=== PATIENT | male | born 1985 | race Caucasian/White ===

== ENCOUNTER 2022-06-02 21:35 | Emergency (ER) | payer OTHER ==
[~2022-06-02] VITALS: Ht 177.8 cm; Wt 77.0 kg
[2022-06-02 21:46] VITALS: BP 134/89
== END 2022-06-02 23:10 ==
LOC: ER 21:35
DX: Z02.89 Encounter for other administrative examinations (principal); F91.8 Other conduct disorders; R03.0 Elevated blood-pressure reading, without diagnosis of hypertension; W86.8XXA Exposure to other electric current, initial encounter; Y35.833A Legal intervention involving a conducted energy device, suspect injured, initial encounter; Z65.3 Problems related to other legal circumstances
CPT/HCPCS: 99283